=== PATIENT | male | born 1980 | race Caucasian/White ===

== ENCOUNTER 2021-07-17 20:04 | Emergency (ER) | payer BC ==
[2021-07-17 20:35] LABS: HEMOGLOBIN 13.6 gm/dl (14.0-17.5); RED BLOOD COUNT 4.19 M/UL (4.20-5.50); WHITE BLOOD COUNT 8.9 K/UL (4.5-11.0)
[2021-07-17 21:02] LABS: BUN/CREATININE RATIO 18 (0-10)
[2021-07-17] MEDS ORDERED: [UNRECOGNIZED DRUG - REMARK] (22:27)
[2021-07-17] MEDS ORDERED: CATAPRES 0.1MG0.1 MG PO (22:27)
== END 2021-07-17 23:37 | disposition home or self-care (01) ==
LOC: ER1 20:04
PROVIDERS: Family Medicine
DX: R51.9 Headache, unspecified (principal); N28.1 Cyst of kidney, acquired
CPT/HCPCS: 70450; 74175; 80053; 81001; 83690; 85025; 93005; 99284; Q9967